=== PATIENT | male | born 2000 | race Caucasian/White ===

== ENCOUNTER 2020-04-26 16:24 | Emergency (ER) | payer OTHER ==
[~2020-04-26] VITALS: Ht 177.8 cm; Wt 65.3 kg
[2020-04-26 17:06] LABS: ABSOLUTE BASOPHILS 0.1 thou/uL (0.0-0.2); ABSOLUTE LYMPHOCYTES 2.2 thou/uL (0.8-5.3); ABSOLUTE MONOCYTES 0.7 thou/uL (0.0-1.2); BASOPHILS 0.9 %; EOSINOPHILS 0.5 %; HEMATOCRIT 42.3 % (42.0-52.0); HEMOGLOBIN 14.6 gm/dL (14.0-18.0); MCH 29.5 pg (26.0-34.0); MCHC 34.6 g/dL (28.0-37.0); MCV 85.5 fL (80.0-100.0); MONOCYTES 7.3 %; MPV 8.8 fl. (7.2-11.1); NUCLEATED RBCS 0 /100WBC; PLATELET COUNT* 234 thou/uL (150-400); POLYS 67.3 %; RBC 4.95 mil/uL (4.50-6.00); WBC 8.9 thou/uL (4.0-11.0)
[2020-04-26 17:17] LABS: CALCIUM 8.3 mg/dL (8.5-10.1); CREATININE 1.5 mg/dL (0.6-1.3); POTASSIUM 3.3 mmol/L (3.5-5.1)
[2020-04-26 17:21] LABS: ALBUMIN 4.2 g/dL (3.4-5.0); TOTAL BILIRUBIN 0.5 mg/dL (<0.1-1.0); TOTAL PROTEIN 7.3 g/dL (6.4-8.2)
[2020-04-26] MEDS ORDERED: KEFLEX500 M1 PO (17:50)
[2020-04-26 18:00] VITALS: BP 129/64
--- NOTE | 2020-04-28 11:04 | EKG ---
[place] [address] ELECTROCARDIOGRAM REPORT Name: ROLANDO MUSA I Room: [facility]#: [id number] Admission: 04/26/20 Attend Phys: Discharge: 04/26/20 Date of : [birth year] Date of Service: 04/26/20 172 Report #: [id number] THIS REPORT FOR: //name// [facility] ED Test Date: 2020-04-26 Test Time: 17:20:03 Pat Name: ROLANDO MUSA Department: Room: Gender: [employer]: [facility] : 2000 Requested By: Juvenal Bond Order Number: [id number] MD: Jose Mishra Measurements Intervals [place] Rate: 70 P: 22 UT: 118 QRS: 75 QRSD: 75 T: 37 QT: 371 QTc: 401 Interpretive Statements Sinus rhythm Borderline short UT interval Probable left ventricular hypertrophy No previous ECG available for comparison Electronically Signed On 04-28-2020 11:04:02 CDT by Jose Mishra [email or web address] <ELECTRONICALLY SIGNED> By: Jose Mishra MD, [facility] 04/28/20 1104 1720 172 Jose Mishra MD, FACC /EPI
== END 2020-04-26 18:00 | disposition home or self-care (01) ==
LOC: M.ERS 16:24
PROVIDERS: Emergency Medicine Emergency Medical Services
DX: S69.82XA Other specified injuries of left wrist, hand and finger(s), initial encounter (principal); R55 Syncope and collapse; Z88.1 Allergy status to other antibiotic agents; W22.8XXA Striking against or struck by other objects, initial encounter; Y93.89 Activity, other specified; Y92.89 Other specified places as the place of occurrence of the external cause; Y99.0 Civilian activity done for income or pay